=== PATIENT | female | born 1970 | race Caucasian/White ===

== ENCOUNTER 2017-07-22 07:47 | Emergency (ER) | payer SELFPAY ==
[2017-07-22 08:11] LABS: INTERNATIONAL RATION (INR) 1.12; PROTHROMBIN TIME 15.2 SEC (11.4-15.4)
[2017-07-22 08:16] LABS: HEMATOCRIT 40.4 % (36.0-47.0); HEMOGLOBIN 13.2 g/dL (12.0-15.5); MEAN CORPUSCULAR HEMOGLOBIN 30.7 pg (27.0-33.4); MEAN CORPUSCULAR HGB CONC 32.8 g/dL (32.0-36.0); MEAN CORPUSCULAR VOLUME 94 fl (80-97); PLATELET COUNT 374 10^3/uL (150-450); RED BLOOD COUNT 4.31 10^6/uL (3.72-5.28); RED CELL DISTRIBUTION WIDTH 13.9 % (11.5-14.0); VENOUS BLOOD HCO3 9.8 mmol/L (20-32); VENOUS BLOOD PCO2 33.5 mmHg (35-63); WHITE BLOOD COUNT 17.9 10^3/uL (4.0-10.5)
--- NOTE | 2017-07-22 08:18 | ER Document Report ---
ED General - General Chief Complaint: Cardiac Arrest Stated Complaint: UNRESPONSIVE Time Seen by Provider: 07/22/17 07:57 TRAVEL OUTSIDE OF THE [place] IN LAST 30 DAYS: No - HPI Patient complains to provider of: Cardiac arrest Notes: Patient coming in for status post cardiac arrest. According to EMS patient was at home family states patient woke up sweaty diaphoretic shortness of breath went to the bathroom heard patient fall down found the patient unresponsive and had some seizure-like activity CPR started EMS was called. Approximate downtime for EMS arrived 10 minutes. EMS states they moved patient to labor and found the patient to be in V. fib. Patient did defibrillate the patient resume CPR to give epinephrine and does have Rosc. This was not permanent as the patient did get back into V. fib again patient was defibrillated a total of 7 times. Patient was also given epinephrine patient was started on lidocaine drip again this occurred and the proximity of approximately about 10 minutes with return of spontaneous circulation. Patient was transported to the ER for further evaluation status post cardiac arrest with return of spontaneous circulation on lidocaine drip. Upon arrival to the ER patient's vital signs showed normal sinus rhythm on the monitor heart rate in the 70s and 80s with blood pressure in low 100s. Patient had a Jamin airway in c-collar place. Otherwise EMS and family member state no past medical history no recent travel patient with URI symptoms for the last few days. - Related Data Allergies/Adverse Reactions: No Known Allergies Allergy (Verified 07/05/12 06:51) Past Medical History - Social History Smoking Status: Unknown if Ever Smoked Family History: Reviewed & Not Pertinent - Immunizations Hx Diphtheria, Pertussis, Tetanus Vaccination: No - unknown Review of Systems - Review of Systems -: Yes ROS unobtainable due to patient's medical condition - Status post cardiac arrest on ventilator Genitourinary: No symptoms reported Physical Exam - Vital signs Vitals: Resp BP Pulse Ox 17 106/81 100 07/22/17 07:56 07/22/17 07:56 07/22/17 07:56 Interpretation: Normal - General General appearance: Unresponsive In distress: Severe - HEENT Head: Normocephalic, Atraumatic Eyes: Normal Conjunctiva: Normal Cornea: Normal Extraocular movements intact: Yes Pupils: PERRL Notes: C-collar applied - Respiratory Respiratory status: No respiratory distress Chest status: Nontender Breath sounds: Normal Chest palpation: Normal - Cardiovascular Rhythm: Regular Heart sounds: Normal auscultation Murmur: No - Abdominal Inspection: Normal Distension: No distension Bowel sounds: Normal Organomegaly: No organomegaly - Genitourinary External exam: Normal - Back Back: Normal, Nontender - Extremities General upper extremity: Normal inspection, Normal color General lower extremity: Normal inspection, Normal color - Neurological Neuro grossly intact: Yes Cognition: Normal Orientation: AAOx4 Aditya Coma Scale Eye Opening: Spontaneous [place] Coma Scale Verbal: Oriented Aditya Coma Scale Motor: Obeys Commands Aditya Coma Scale Total: 15 Speech: Normal Motor strength normal: LUE, RUE, LLE, RLE Sensory: Normal - Skin Skin Temperature: Warm Skin Moisture: Dry Skin Color: Normal Course - Re-evaluation Re-evalutation: 07/22/17 09:31 Upon arrival pupils ABNER mckeon airway was exchanged for ET tube. Patient was given 20 of etomidate. There is procedure patient did start breathing on her own did have a slight amount of gagging. Patient did have some spontaneous movement of her upper extremities towards the core however this was also during intubation and painful stimuli unaware this was posturing or just response painful stimuli. After intubation patient continued to move her hands to the center midline of the abdomen therefore patient was placed in restraints did give the patient a dose of rocuronium. Temperature Elam shows patient maintaining temperature of 94F. Chest x-ray did not show any acute abnormality. Initially discussed with Niko Garcia told by transfer team they were not accepting any patients for transfer including status post cardiac arrest did discuss with Dr. Foster head wrestling coach at [facility]. Goals for therapy temperature at approximately 94F. Map above 70. They request CT of the head and neck. These were just read as normal. No acute abnormality. Chest x-ray was also normal. Patient has 2 IVs will continue with lidocaine drip. Patient has remained stable during her time here in the ER. 07/22/17 09:34 Venous blood gas does show acidosis elevated lactic acid leukocytosis which more likely from postarrest. We will continue to support the patient. - Vital Signs Vital signs: Temp Pulse Resp BP Pulse Ox 22 H 126/90 H 97 07/22/17 09:36 07/22/17 09:36 07/22/17 09:36 - Laboratory Result Diagrams: 07/22/17 07:44 07/22/17 07:44 Laboratory results interpreted by me: 07/22/17 07/22/17 07/22/17 07:44 07:44 07:44 WBC 17.9 H Band Neutrophils % 1 L Metamyelocytes % 1 H Abs Neuts (Manual) 9.0 H Abs Lymphs (Manual) 7.3 H Abs Basophils (Manual) 0.4 H VBG pH VBG pCO2 VBG HCO3 Potassium 3.4 L Chloride 108 H Carbon Dioxide 8 L* Anion Gap 27 H Est GFR (Non-Af Amer) 54 L Glucose 165 H POC Glucose Lactic Acid 12.4 H Direct Bilirubin 0.6 H AST 256 H ALT 162 H Urine Protein Urine Ketones Urine Blood Ur Leukocyte Esterase 07/22/17 07/22/17 07/22/17 07:44 08:04 08:19 WBC Band Neutrophils % Metamyelocytes % Abs Neuts (Manual) Abs Lymphs (Manual) Abs Basophils (Manual) VBG pH 7.09 L* VBG pCO2 33.5 L VBG HCO3 9.8 L Potassium Chloride Carbon Dioxide Anion Gap Est GFR (Non-Af Amer) Glucose POC Glucose 154 H Lactic Acid Direct Bilirubin AST ALT Urine Protein >=500 H Urine Ketones TRACE H Urine Blood MODERATE H Ur Leukocyte Esterase SMALL H Procedures - Intubation Orotracheal Airway evaluation: Neck immobility - C-collar Mallampati Classification: Class 2 Medications: Etomidate Intubation method: Orotracheal Blade size: 3 Equipment used: Glidescope ETT size: 7.0 ETT secured at: Lips ETT secured at (cm): 21 Breath Sounds after Intubation: Equal Critical Care Note - Critical Care Note Total time excluding time spent on procedures (mins): 50 Comments: Time spent multiple evaluations for patient with status post cardiac arrest. Time spent discussing with transferring etiology Discharge - Discharge Clinical Impression: Cardiac arrest with ventricular fibrillation Respiratory failure Qualifiers: Chronicity: acute Respiratory failure complication: unspecified whether with hypoxia or hypercapnia Qualified Code(s): J96.00 - Acute respiratory failure, unspecified whether with hypoxia or hypercapnia Condition: Stable Disposition: [facility]
[2017-07-22 08:21] LABS: VENOUS BLOOD PH 7.09 (7.30-7.42)
[2017-07-22 08:26] LABS: ALANINE AMINOTRANSFERASE 162 U/L (9-52); ALBUMIN 4.9 g/dL (3.5-5.0); ALKALINE PHOSPHATASE 81 U/L (38-126); BILIRUBIN,DIRECT 0.6 mg/dL (0.0-0.4); BILIRUBIN,TOTAL 0.9 mg/dL (0.2-1.3); BLOOD UREA NITROGEN 14 mg/dL (7-20); CALCIUM 9.9 mg/dL (8.4-10.2); GLUCOSE 165 mg/dL (75-110); TOTAL PROTEIN 7.8 g/dL (6.3-8.2)
[2017-07-22 08:32] LABS: ASPARTATE AMINO TRANSFERASE 256 U/L (14-36)
[2017-07-22] MEDS ORDERED: ROCURONIUM BROMIDE INJ 50 MG/5 ML VIAL IV ONE ×2 (08:38→11:54)
[2017-07-22] MEDS ORDERED: ETOMIDATE INJ/PF 20 MG/10 ML SDV IV ONE (08:38)
[2017-07-22 08:41] LABS: CHLORIDE 108 mmol/L (98-107); POTASSIUM 3.4 mmol/L (3.6-5.0); SODIUM 142.9 mmol/L (137-145)
--- NOTE | 2017-07-22 08:41 | RADIOLOGY REPORT (SQ) ---
EXAM DESCRIPTION: CHEST SINGLE VIEW COMPLETED DATE/TIME: 07/22/2017 8:30 am REASON FOR STUDY: sp arrest COMPARISON: 01/15/2015. EXAM PARAMETERS: NUMBER OF VIEWS: One view. TECHNIQUE: Single frontal radiographic view of the chest acquired. RADIATION DOSE: NA LIMITATIONS: None. FINDINGS: LUNGS AND PLEURA: No acute infiltrates or effusions. MEDIASTINUM AND HILAR STRUCTURES: No masses. Contour normal. HEART AND VASCULAR STRUCTURES: Heart normal in size. Normal vasculature. BONES: No acute findings. HARDWARE: None in the chest. OTHER: Endotracheal tube above zaida. NG tube overlying stomach. Defibrillator pad overlying right lung field obscuring detail. Defibrillator pad with left lower chest wall. IMPRESSION: Endotracheal tube above zaida in good position. NG tube overlying stomach. Otherwise, no acute disease. TECHNICAL DOCUMENTATION: JOB ID: [id number] 2010 [employer]- All Rights Reserved
[2017-07-22 08:42] LABS: ANION GAP 27 (5-19)
[2017-07-22 08:45] LABS: CARBON DIOXIDE 8 mmol/L (22-30)
[2017-07-22] MEDS ORDERED: NORMAL SALINE 1000 ML 1,000 ML IV ONE (08:45)
[2017-07-22 08:55] LABS: ABSOLUTE LYMPHOCYTES# (MANUAL) 7.3 10^3/uL (0.5-4.7); ABSOLUTE MONOCYTES # (MANUAL) 0.9 10^3/uL (0.1-1.4); BAND NEUTROPHILS % (MANUAL) 1 % (3-5); BASOPHILS % (MANUAL) 2 % (0-2); EOSINOPHILS % (MANUAL) 2 % (0-6); LYMPHOCYTES % (MANUAL) 41 % (13-45); METAMYELOCYTES % (MANUAL) 1 % (0); MONOCYTES % (MANUAL) 5 % (3-13); SEGMENTED NEUTROPHILS % (MAN) 48 % (42-78); TOTAL CELLS COUNTED 100
[2017-07-22 08:57] LABS: ANISOCYTOSIS SLIGHT; PLATELET COMMENT ADEQUATE; PLATELET GIANT PRESENT; POLYCHROMASIA SLIGHT
[2017-07-22] MEDS: NORMAL SALINE 1000 ML 1,000 ML IV PRN ×2 (09:11→09:12)
--- NOTE | 2017-07-22 09:14 | RADIOLOGY REPORT (SQ) ---
EXAM DESCRIPTION: CT HEAD WITHOUT COMPLETED DATE/TIME: 07/22/2017 9:01 am REASON FOR STUDY: sp card arrest COMPARISON: None. TECHNIQUE: Axial images acquired through the brain without intravenous contrast. Images reviewed wi th bone, brain and subdural windows. Images stored on PACS. All CT scanners at this facility use dose modulation, iterative reconstruction, and/or weight based d osing when appropriate to reduce radiation dose to as low as reasonably achievable (ALARA). [facility]: Dose Right [facility]: CareDose [facility]: Dose Right [facility]: Teradose 4D [facility]: [employer] RADIATION DOSE: CT Rad equipment meets quality standard of care and radiation dose reduction techniq ues were employed. CTDIvol: 64.6 mGy. DLP: 1163 mGy-cm. mGy. LIMITATIONS: None. FINDINGS: VENTRICLES: Normal size and contour. CEREBRUM: Intracranially, no abnormal areas of increased or decreased attenuation are noted. There i s no mass effect or shift. No intracranial hemorrhage. CEREBELLUM: No masses. No hemorrhage. No alteration of density. No evidence for acute infarction. EXTRAAXIAL SPACES: No fluid collections. No masses. ORBITS AND GLOBE: No intra- or extraconal masses. Normal contour of globe without masses. CALVARIUM: No fracture. PARANASAL SINUSES: No fluid or mucosal thickening. SOFT TISSUES: No mass or hematoma. OTHER: NG tube in place. Oral airway in place. IMPRESSION: NORMAL NONCONTRAST CT OF THE HEAD. EVIDENCE OF ACUTE STROKE: NO. COMMENT: Quality ID # [id number]: Final reports with documentation of one or more dose reduction techniques (e.g., Automated exposure control, adjustment of the mA and/or kV according to patient size, use of iterative reconstruction technique) TECHNICAL DOCUMENTATION: JOB ID: [id number] 2010 [employer]- All Rights Reserved
--- NOTE | 2017-07-22 09:16 | RADIOLOGY REPORT (SQ) ---
EXAM DESCRIPTION: CT CERVICAL SPINE WITHOUT COMPLETED DATE/TIME: 07/22/2017 9:05 am REASON FOR STUDY: sp card arrest COMPARISON: None. TECHNIQUE: Axial images acquired through the cervical spine without intravenous contrast. Images re viewed with lung, soft tissue and bone windows. Reconstructed coronal and sagittal MPR images review ed. Images stored on PACS. All CT scanners at this facility use dose modulation, iterative reconstruction, and/or weight based d osing when appropriate to reduce radiation dose to as low as reasonably achievable (ALARA). [facility]: Dose Right [facility]: CareDose [facility]: Dose Right [facility]: Teradose 4D [facility]: [employer] RADIATION DOSE: CT Rad equipment meets quality standard of care and radiation dose reduction techniq ues were employed. CTDIvol: 14.6 mGy. DLP: 326 mGy-cm. mGy. LIMITATIONS: None. FINDINGS: ALIGNMENT: Anatomic. MINERALIZATION: Normal. VERTEBRAL BODIES: No fractures or dislocation. DISCS: Multilevel disc space narrowing with osteophytes. FACETS, LATERAL MASSES, POSTERIOR ELEMENTS: Facet arthropathy. No fractures. No dislocation. No ac [place] findings. HARDWARE: None in the spine. VISUALIZED RIBS: No fractures. LUNG APICES AND SOFT TISSUES: There is partial visualization of left greater than right upper lobe ai rspace disease. OTHER: Endotracheal tube and nasogastric tube in place. IMPRESSION: DEGENERATIVE CHANGE OF THE CERVICAL SPINE WITHOUT FRACTURE. PARTIAL VISUALIZATION OF LEFT GREATER THAN RIGHT UPPER LOBE AIRSPACE DISEASE MAY REPRESENT ASPIRATION OR CONFLUENT PULMONARY EDEMA IN THE HISTORY OF CARDIAC ARREST. TECHNICAL DOCUMENTATION: JOB ID: [id number] Quality ID # [id number]: Final reports with documentation of one or more dose reduction techniques (e.g., Au tomated exposure control, adjustment of the mA and/or kV according to patient size, use of iterative reconstruction technique) 2010 [employer]- All Rights Reserved
[2017-07-22 09:40] VITALS: BP 126/90
--- NOTE | 2017-07-22 09:50 | EKG REPORT ---
SEVERITY:- BORDERLINE ECG - SINUS RHYTHM PROBABLE LEFT ATRIAL ABNORMALITY BORDERLINE LEFT AXIS DEVIATION : Confirmed by: Leilani Zuleta 22-Jul-2017 09:49:37
[2017-07-22 10:04] LABS: AMORPHOUS SEDIMENT,URINE TRACE /HPF; APPEARANCE,URINE SLIGHTLY-CLOUDY; BILIRUBIN,URINE NEGATIVE (NEGATIVE); COLOR,URINE YELLOW; GLUCOSE, URINE NEGATIVE (NEGATIVE); KETONES,URINE TRACE mg/dL (NEGATIVE); LEUKOCYTE ESTERASE,URINE SMALL (NEGATIVE); NITRITE,URINE NEGATIVE (NEGATIVE); PROTEIN,URINE >=500 mg/dL (NEGATIVE); URINE SPECIFIC GRAVITY 1.015; UROBILINOGEN,URINE NEGATIVE mg/dL (<2.0)
[2017-07-22 10:16] LABS: URINE AMPHETAMINES SCREEN NEGATIVE; URINE BARBITURATES SCREEN NEGATIVE; URINE BENZODIAZEPINES SCREEN NEGATIVE; URINE COCAINE SCREEN NEGATIVE; URINE MARIJUANA (THC) SCREEN NEGATIVE; URINE METHADONE SCREEN NEGATIVE; URINE PHENCYCLIDINE SCREEN NEGATIVE
== END 2017-07-22 10:09 | disposition short-term general hospital (02) ==
LOC: ER 07:47
PROC: 0BH17EZ Insertion of Endotracheal Airway into Trachea, Via Natural or Artificial Opening (ICD-10-PCS; principal; 2017-07-22)
DX: I46.9 Cardiac arrest, cause unspecified (principal); J96.00 Acute respiratory failure, unspecified whether with hypoxia or hypercapnia; R61 Generalized hyperhidrosis; R06.02 Shortness of breath
CPT/HCPCS: 93005; 99291; 36415; 87040; 87086; 82962; 85025; 85610; 80053; 81001; 84484; 80307; 82803; 83605; 71045; 70450; 72125; 93010; 31500; J3490; J7030

== ENCOUNTER 2019-02-01 18:03 | Emergency (ER) | payer SELFPAY ==
[2019-02-01] MEDS ORDERED: HYDROCODONE/ACETAMINOPHEN 5-325 MG TABLET PO ONE (18:26)
[2019-02-01] MEDS ORDERED: LIDOCAINE 2% VISCOUS SOLN 20 ML UDCUP PO ONE (18:26)
[2019-02-01] MEDS ORDERED: CETIRIZINE 10 MG TABLET PO ONE (18:28)
--- NOTE | 2019-02-01 18:31 | ER Document Report ---
HPI - HPI Patient complains to provider of: Sore throat, ear pain Time Seen by Provider: 02/01/19 18:16 Onset: Other - 10 days Onset/Duration: Persistent Quality of pain: Achy Pain Level: 4 Context: Patient presents complaining of sore throat and ear pain for the past 10 days. Patient denies any fever. Patient states whenever she lies on either side she feels like something is moving behind her throat to each side. Patient reports mild cough that just started today. Patient also complains of tender lymph nodes to neck. Associated Symptoms: Nonproductive cough, Earache, Sore throat. denies: Headache, Nausea, Vomiting, Rhinnorhea Exacerbated by: Denies Relieved by: Denies Similar symptoms previously: No Recently seen / treated by doctor: No - ROS ROS below otherwise negative: Yes Systems Reviewed and Negative: Yes All other systems reviewed and negative - CONSTITUTIONAL Constitutional: DENIES: Fever - EENT EENT: REPORTS: Sore Throat, Ear Pain. DENIES: Nasal Drainage-Clear - NEURO Neurology: DENIES: Headache - CARDIOVASCULAR Cardiovascular: DENIES: Chest pain - RESPIRATORY Respiratory: REPORTS: Coughing. DENIES: Trouble Breathing - GASTROINTESTINAL Gastrointestinal: DENIES: Patient vomiting - REPRODUCTIVE Reproductive: DENIES: : - DERM Skin Color: Normal Skin Problems: None Past Medical History - General Information source: Patient - Social History Smoking Status: Current Every Day Smoker Frequency of alcohol use: Rare Drug Abuse: None Occupation: None Lives with: Spouse/Significant other Family History: Reviewed & Not Pertinent Patient has suicidal ideation: No Patient has homicidal ideation: No - Past Medical History Cardiac Medical History: Reports: Hx Heart Attack, Hx Hypercholesterolemia Renal/ Medical History: Denies: Hx Peritoneal Dialysis Past Surgical History: Reports: Hx Cardiac Catheterization - 2 stents - Immunizations Hx Diphtheria, Pertussis, Tetanus Vaccination: No - unknown Vertical Provider Document - CONSTITUTIONAL Agree With Documented VS: Yes Exam Limitations: No Limitations - INFECTION CONTROL TRAVEL OUTSIDE OF THE [place] IN LAST 30 DAYS: No - HEENT HEENT: Atraumatic, Normocephalic, Pharyngeal Tenderness. negative: Pharyngeal Exudate, Pharyngeal Erythema, Tympanic Membrane Red, Tympanic Membrane Bulging - NECK Neck: Lymphadenopathy-Left, Lymphadenopathy-Right - RESPIRATORY Respiratory: Chest Non-Tender, Other - occasional dry cough. negative: No Respiratory Distress, Rales, Rhonchi, Wheezing - CARDIOVASCULAR Cardiovascular: Regular Rate, Regular Rhythm. negative: No Murmur - MUSCULOSKELETAL/EXTREMETIES Musculoskeletal/Extremeties: MAEW - NEURO Level of Consciousness: Awake, Alert, Appropriate Motor/Sensory: No Motor Deficit - DERM Integumentary: Warm, Dry, No Rash Course - Vital Signs Vital signs: Temp Pulse Resp BP Pulse Ox 98.2 F 77 18 120/75 99 02/01/19 18:09 02/01/19 18:09 02/01/19 18:09 02/01/19 18:09 02/01/19 18:09 - Laboratory Laboratory results interpreted by me: 02/01/19 19:25 Labs- Entire Visit 02/01/19 02/01/19 18:35 18:35 Monotest NEGATIVE Group A Strep Rapid NEGATIVE Discharge - Discharge Clinical Impression: Sore throat (viral) Otalgia Qualifiers: Laterality: bilateral Qualified Code(s): H92.03 - Otalgia, bilateral Condition: Stable Disposition: HOME, SELF-CARE Instructions: Sore Throat ([facility]) Additional Instructions: Return immediately for any new or worsening symptoms Followup with your primary care provider, call tomorrow to make a followup appointment Take [facility] [id number] as directed Forms: Smoking Cessation Education
[2019-02-01 19:31] VITALS: BP 126/77
== END 2019-02-01 19:31 | disposition home or self-care (01) ==
LOC: ER 18:03
DX: J02.9 Acute pharyngitis, unspecified (principal); H92.03 Otalgia, bilateral; E78.00 Pure hypercholesterolemia, unspecified; F17.200 Nicotine dependence, unspecified, uncomplicated; I25.2 Old myocardial infarction
CPT/HCPCS: 99283; 36415; 87070; 87880; 86308; J3490